=== PATIENT | male | born 1980 ===

== ENCOUNTER 2023-04-19 15:36 | Outpatient (AMB) | payer OTHER, SELFPAY ==
[2023-04-19 15:42] VITALS: BP 136/74; PULSE 101; RESP 13; TEMP 36.4; O2SAT 98; BMI 29.4
--- NOTE | 2023-04-19 15:42 | MHC.OFFWIV ---
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 Accompanied by: Self / Same As Patient Allergies amoxicillin Adverse Reaction (Severe, Verified 04/19/23 15:58) Vomiting clavulanic acid [From Augmentin] Adverse Reaction (Severe, Verified 04/19/23 15:58) Vomiting Penicillins Adverse Reaction (Severe, Verified 04/19/23 15:58) Vomiting Medication List - Last Reconciled 04/19/23 by OPAL BrownP- acetaminophen (Tylenol Extra Strength) 1,000 mg PO Q6H PRN buprenorphine-naloxone 12-3 mg 15 mg sublingual DAILY ibuprofen 600 mg PO Q8H PRN naloxone 4 mg/actuation intranasal nicotine 1 patch topical DAILY Do you need a note to return to daycare/school/sports/work: No HPI HPI Comments History of Present Illness Details Here today w c/o concern for dental infection, left upper molar area. Sx started yesterday. Worse since onset assoc w facial swelling. several infections in the past. insurance barriers to dental care + tobacco Bactrim or Cipro has worked well for him in the past. Using APAP and Motrin w/ some relief. Denies fever, chills. PFSH Social History Patient Tobacco Use Status: Current everyday Tobacco user Review of Systems Const All systems reviewed & are unremarkable except as noted in HPI and below Physical Exam Vital Signs: Last Vital Signs Temp 97.5 F 04/19/23 15:42 Pulse 101 H 04/19/23 15:42 Resp 13 04/19/23 15:42 BP 136/74 04/19/23 15:42 Pulse Ox 98 04/19/23 15:42 Oxygen Delivery Method Room Air 04/19/23 15:42 BMI result Body Mass Index 29.4 Const Other: edema of buccal mucousa L side multiple missing teeth, dental caries, edema of Left upper gum, pain w/ palpation no assoc adenopathy MMM Assessment & Plan Assessment & Plan (1) Infected dental caries: Code(s): K02.9 - Dental caries, unspecified; K04.7 - Periapical abscess without sinus Plan: . Medications: New sulfamethoxazole-trimethoprim 800-160 mg (Bactrim DS) 1 tab PO BID 10 days 20 tabs 0RF chlorhexidine gluconate 0.12% 15 mL mucous membrane BID 1,893 mL 0RF Patient Instructions: Check out the [facility] Dental Hygiene program for cleanings; this will be free of charge Also check out the [facility] for their dental programs (medical) Coding Level of Care Code New Pt Level 3 (65000) Diagnoses Infected dental caries K02.9; K04.7 Time Spent (min) 30
== END 2023-04-19 16:07 | disposition home or self-care (01) ==
PROVIDERS: Visit Provider Nurse Practitioner Family
DX: K02.9 Dental caries, unspecified (principal); K04.7 Periapical abscess without sinus
CPT/HCPCS: 99203